=== PATIENT | female | born 1970 | race Caucasian/White ===

== ENCOUNTER → 2017-01-20 | Outpatient (CLI) | payer BC ==
[2015-06-23 18:05] VITALS: BP 148/72
[~2017-01-20] MED LIST: CEPH500C PO; CYAN10005 PO; DICY20TA3 PO; FLUO40CA9 PO; FOLI1TAB16 PO; METH2.5T PO; ONDA4TAB12 PO; PHEN100C PO
--- NOTE | 2017-01-20 15:49 | RAD ---
Bone Densitometry History: Menopausal screening, white female, recent right ankle fracture, calcium use, rheumatoid arthritis and anticonvulsant use. Findings: Bone Densitometry was performed with dual photon absorption of the lumbar spine and proximal right femur. Lumbar Spine: Bone density is 0.940 g/cm2 for L1-L4. T-score is -2.0. Right Femur: Bone density is 0.783 g/cm2. T-score is -1.8. Impression: Osteopenia of the lumbar spine and proximal femurs. World Health Organization definition of osteoporosis and osteopenia for women: normal equals T score at or above -1.0 standard deviations; osteopenia equals T score between -1.0 and -2.5 standard deviations; osteoporosis equals T score at or below -2.5 standard deviations.
== END | disposition home or self-care (01) ==
LOC: DXRAD 15:16
PROVIDERS: ATTEND Physician Assistant
DX: M85.88 Other specified disorders of bone density and structure, other site (principal); S82.891D Other fracture of right lower leg, subsequent encounter for closed fracture with routine healing; M06.871 Other specified rheumatoid arthritis, right ankle and foot; X58.XXXD Exposure to other specified factors, subsequent encounter; Z78.0 Asymptomatic menopausal state
CPT/HCPCS: 77080

== ENCOUNTER → 2017-03-01 | Outpatient (CLI) | payer BC ==
[2015-06-23 18:05] VITALS: BP 148/72
--- NOTE | 2017-03-01 15:46 | RAD ---
DATE: 03/01/2017 EXAM: MAMMO ANA SCREENING BILATERAL HISTORY: Screening. Note is made of the positive family history for breast malignancy COMPARISON: 02/04/2016 This study was interpreted with the benefit of Computerized Aided Detection (CAD). FINDINGS: Breast Density: SCATTERED The breast parenchyma shows scattered fibroglandular densities. Breast parenchyma level B. The right breast is unchanged. The width there is a well-defined small, approximately 5 mm, density in the upper and outer aspect of the left breast. This may be present previously and probably reflects an intramammary lymph node. Targeted ultrasound advised. IMPRESSION: Small well-defined mass upper outer left breast. Targeted ultrasound is advised. BI-RADS CATEGORY: 0 INCOMPLETE: NEED ADDITIONAL IMAGING EVAULATION AND/OR PRIOR MAMMOGRAMS FOR COMPARISON RECOMMENDED FOLLOW-UP: ADD ADDITIONAL IMAGING PQRS compliance statement: Patient information was entered into a reminder system with a target due date soon for the next mammogram. Mammography is a sensitive method for finding small breast cancers, but it does not detect them all and is not a substitute for careful clinical examination. A negative mammogram does not negate a clinically suspicious finding and should not result in delay in biopsying a clinically suspicious abnormality. "Our facility is accredited by the [employer] Mammography Program."
== END | disposition home or self-care (01) ==
LOC: MAMMO 14:07
PROVIDERS: ATTEND Obstetrics & Gynecology
DX: Z12.31 Encounter for screening mammogram for malignant neoplasm of breast (principal); N63 Unspecified lump in breast; Z80.3 Family history of malignant neoplasm of breast
CPT/HCPCS: 77063; G0202; 77067

== ENCOUNTER → 2017-03-03 | Outpatient (CLI) | payer BC ==
[2015-06-23 18:05] VITALS: BP 148/72
--- NOTE | 2017-03-03 10:39 | RAD ---
Left breast ultrasound, 03/03/2017: History: Left breast nodule The recent diagnostic mammograms demonstrated a small smooth nodule at the 2-3:00 location in the left breast. A targeted ultrasound exam of that area demonstrates a 5 x 4 x 3 mm lymph node type density. Its margins are smooth. It demonstrates a normal echogenic hilum. No other abnormality is seen in this region. IMPRESSION: Small benign-appearing intramammary lymph node at the 2-3:00 location in the left breast, corresponding in size and location to the mammographic abnormality. BI-RADS 2-benign findings
== END | disposition home or self-care (01) ==
LOC: US 09:52
PROVIDERS: ATTEND Physician Assistant
DX: N63 Unspecified lump in breast (principal); R92.8 Other abnormal and inconclusive findings on diagnostic imaging of breast
CPT/HCPCS: 76641

== ENCOUNTER 2019-06-27 16:23 | Emergency (ER) | payer BC ==
[~2019-06-27] VITALS: Ht 170.2 cm; Wt 96.1 kg
[~2019-06-27 16:23] MED LIST changes: +CYAN-25 PO; -CYAN10005 PO
--- NOTE | 2019-06-27 16:55 | PHYS DOC ---
Past History Past Medical History: Arthritis, Depression, Seizure Past Surgical History: Appendectomy, Cervical Fusion, Cholecystectomy, Oophorectomy, Tonsillectomy, Other Additional Past Surgical Histo: right ankle with metal placed for tib/fib fx Smoking: Non-smoker Alcohol Use: Occasionally Additional Alcohol Information: 2-3 wine daily Drug Use: None Adult General Chief Complaint Chief Complaint: CHEST PAIN HPI HPI Patient is a 49-year-old female presents complaining of right-sided chest discomfort for the past 2 days. This started after she had been doing some heavy lifting 3 days ago helping move furniture. Acutely onset after sneezing and coughing 2 days ago. No home pain medicines been taken. Increased pain with deep breaths. She did travel to [place] by a air at the beginning of May. There has been no new leg swelling. No nausea or vomiting. No diaphoresis. No radiation of the pain. It is sharp and has been constant for the past 2 days. No specific worsening with exertion.[] Review of Systems Review of Systems Constitutional: Denies fever or chills [] Eyes: Denies change in visual acuity, redness, or eye pain [] HENT: Denies nasal congestion or sore throat [] Respiratory: Denies cough or shortness of breath [] Cardiovascular: No additional information not addressed in HPI [] GI: Denies abdominal pain, nausea, vomiting, bloody stools or diarrhea [] : Denies dysuria or hematuria [] Musculoskeletal: Denies back pain or joint pain [] Integument: Denies rash or skin lesions [] Neurologic: Denies headache, focal weakness or sensory changes [] Endocrine: Denies polyuria or polydipsia [] All other systems were reviewed and found to be within normal limits, except as documented in this note. Allergies Allergies Allergies Coded Allergies Type Severity Reaction Last Updated Verified phenobarbital Adverse Reaction Intermediate anxiety 06/27/19 No Physical Exam Physical Exam Constitutional: Well developed, well nourished, no acute distress, non-toxic appearance. [] HENT: Normocephalic, atraumatic, bilateral external ears normal, oropharynx moist, no oral exudates, nose normal. [] Eyes: PERRLA, EOMI, conjunctiva normal, no discharge. [] Neck: Normal range of motion, no tenderness, supple, no stridor. No JVD, trachea is midline[] Cardiovascular:Heart rate regular rhythm, no murmur [] Lungs & Thorax: Bilateral breath sounds clear to auscultation. There is tenderness to palpation in the mid clavicular line, over the fifth rib. There is no bruising. No crepitus. This re-creates the discomfort. [] Abdomen: Bowel sounds normal, soft, no tenderness, no masses, no pulsatile masses. [] Skin: Warm, dry, no erythema, no rash. [] Back: No tenderness, no CVA tenderness. [] Extremities: No tenderness, no cyanosis, no clubbing, ROM intact, no edema. [] Neurologic: Alert and oriented X 3, normal motor function, normal sensory function, no focal deficits noted. [] Psychologic: Affect normal, judgement normal, mood normal. [] Current Patient Data Vital Signs Vital Signs Date Time Temp Pulse Resp B/P (MAP) Pulse Ox O2 Delivery O2 Flow Rate FiO2 06/27/19 16:33 98.6 76 20 96 Room Air EKG EKG EKG shows a sinus rhythm at 70 bpm, normal axis, QTC 435 ms, no ST elevation. Interpreted by me at 1701[] Radiology/Procedures Radiology/Procedures Chest x-ray shows no infiltrate, no effusion, no pneumothorax[] Course & Med Decision Making Course & Med Decision Making Pertinent Labs and Imaging studies reviewed. (See chart for details) ED course: Patient arrived, was placed in bed, and tolerated exam well. IV access was established, she was given IV ketorolac which significantly improved her pain, and her blood pressure came down with pain improvement. She was transferred to and from radiology with any consultations. After the return of laboratory and imaging findings, these were discussed with the patient voiced understanding. All questions were answered. She was discharged in improved condition. Medical decision making: There is no evidence of a pneumonia, pneumothorax, pulmonary embolism, esophageal rupture, dissecting thoracic aneurysm, nor acute coronary syndrome. Believe this to be rib/costochondritis type of issue following the cough.[] Dragon Disclaimer Dragon Disclaimer This electronic medical record was generated, in whole or in part, using a voice recognition dictation system. Departure Departure: Impression: Primary Impression: Chest pain Disposition: HOME, SELF-CARE Condition: IMPROVED Referrals: WENDY ISAACS (PCP) Follow-up in 2 days Patient Instructions: Chest Pain (Nonspecific), Chest Wall Pain Additional Instructions: Follow-up with your regular doctor in 2 days. Take the medication as prescribed. Return to the ER if worsening discomfort, difficulty breathing, or any other concerns. Scripts Acetaminophen With Codeine (TYLENOL WITH CODEINE #3 TABLET) 1 Each Tablet 1 TAB PO Q4-6HRS for severe pain, #30 TAB Prov: CLIFTON SELLERS DO 06/27/19 D-Methorphan Hb/Prometh Hcl (PROMETHAZINE-DM SYRUP) 118 Ml Syrup 5 ML PO PRN Q4HRS for CONGESTION, #120 ML Prov: CLIFTON SELLERS DO 06/27/19 Meloxicam (MELOXICAM) 7.5 Mg Tablet 7.5 MG PO DAILY for PAIN, #20 TAB Prov: CLIFTON SELLERS DO 06/27/19 Problem Qualifiers Primary Impression: Chest pain Chest pain type: intercostal pain Qualified Codes: R07.82 - Intercostal pain CLIFTON SELLERS DO Jun 27, 2019 16:55
[2019-06-27] MEDS ORDERED: KETOROLAC 15 MG/ML VIAL. IV ONE (17:00)
--- NOTE | 2019-06-27 17:06 | EKG ---
[address] [address] Test Date: 2019-06-27 Test Time: 16:58:25 Pat Name: THANG STEPHEN Department: Room: Gender: F Staff Sonographer: [place] : 1970 Requested By: CLIFTON SELLERS Order Number: [id number] Reading MD: Measurements Intervals [place] Rate: 70 P: 41 CT: 166 QRS: 0 QRSD: 88 T: 17 QT: 400 QTc: 435 Interpretive Statements SINUS RHYTHM LEFTWARD AXIS QRS(T) CONTOUR ABNORMALITY CONSIDER ANTEROSEPTAL MYOCARDIAL DAMAGE POSSIBLY ABNORMAL ECG RI6.01 No previous ECG available for comparison
[2019-06-27 17:30] LABS: BASO % 0 % (0-3); EOS # 0.2 x10^3/uL (0.0-0.7); EOS % 3 % (0-3); HEMATOCRIT 43.1 % (36.0-47.0); HEMOGLOBIN 14.6 g/dL (12.0-15.5); LYMPH # 1.8 x10^3/uL (1.0-4.8); LYMPH % 24 % (24-48); MEAN CORPUSCULAR HEMOGLOBIN 30 pg (25-35); MEAN CORPUSCULAR HGB CONC 34 g/dL (31-37); MEAN CORPUSCULAR VOLUME 88 fL (79-100); MONO # 0.8 x10^3/uL (0.0-1.1); MONO % 10 % (0-9); NEUT # 4.7 x10^3uL (1.8-7.7); NEUT % 63 % (31-73); PLATELET COUNT 224 x10^3/uL (140-400); RED BLOOD COUNT 4.88 x10^6/uL (3.50-5.40); RED CELL DISTRIBUTION WIDTH 12.7 % (11.5-14.5); WHITE BLOOD COUNT 7.5 x10^3/uL (4.0-11.0)
[2019-06-27 17:43] LABS: PREG TEST PT QUAL NEGATIVE (NEG)
[2019-06-27 17:44] LABS: ALBUMIN 3.8 g/dL (3.4-5.0); ALBUMIN/GLOBULIN RATIO 1.1 (1.0-1.7); CALCIUM 9.3 mg/dL (8.5-10.1); CREATININE 0.7 mg/dL (0.6-1.0); GFR 88.2; MAGNESIUM 1.9 mg/dL (1.8-2.4); POTASSIUM 3.7 mmol/L (3.5-5.1); TOTAL BILIRUBIN 0.4 mg/dL (0.2-1.0); TOTAL PROTEIN 7.2 g/dL (6.4-8.2)
[2019-06-27 18:00] VITALS: BP 123/75
[2019-06-27] MEDS ORDERED: MELO7.5T29 PO (18:00)
[2019-06-27] MEDS ORDERED: PROM118S9 PO (18:00)
[2019-06-27] MEDS ORDERED: ACET-704 PO (18:00)
--- NOTE | 2019-06-27 18:22 | RAD ---
CHEST PA LATERAL Technique: PA and lateral views of the chest were obtained. Clinical History: Right-sided chest pain and cough Comparison: None. Findings: The heart and pulmonary vasculature appear within normal limits. There is linear opacities in the lung bases. The pleural margins are clear. Impression: Basilar infiltrates right worse than left likely pneumonia. Electronically signed by: Arron Bustamante III, MD (06/27/2019 6:19 PM) [facility]
== END 2019-06-27 18:19 | disposition home or self-care (01) ==
LOC: ER 16:23
DX: R07.82 Intercostal pain (principal); M19.90 Unspecified osteoarthritis, unspecified site; Z88.8 Allergy status to other drugs, medicaments and biological substances
CPT/HCPCS: 36415; 71046; 80053; 83690; 83735; 83880; 84484; 84703; 85025; 85379; 85610; 85730; 93005; 96374; 99285; J1885

== ENCOUNTER → 2020-05-13 | Outpatient (CLI) | payer BC ==
[~2020-05-13] MED LIST changes: +ACET-704 PO; +MELO7.5T29 PO; +PROM118S10 PO
--- NOTE | 2020-05-13 16:53 | RAD ---
EXAM: Right ankle, 3 views. HISTORY: Pain. COMPARISON: None. FINDINGS: 3 views of the right ankle are obtained. There is internal fixation of suspected healed medial and lateral malleolar fractures. The ankle mortise is intact. No osteochondral lesion is seen. There is soft tissue swelling. There is a small plantar spur. There is a corticated ossicle anterior to the talus. IMPRESSION: 1. Internal fixation of a suspected healed bimalleolar fractures. 2. Small plantar spur. 3. Soft tissue swelling. Electronically signed by: Bethany Webber MD (05/13/2020 4:50 PM) [id number]
== END | disposition home or self-care (01) ==
LOC: RAD 14:13
PROVIDERS: ATTEND Orthopaedic Surgery
DX: M77.31 Calcaneal spur, right foot (principal); M79.89 Other specified soft tissue disorders
CPT/HCPCS: 73610

== ENCOUNTER → 2020-08-20 | Outpatient (CLI) | payer BC ==
--- NOTE | 2020-08-20 11:38 | RAD ---
INDICATION: Osteoporosis screening. Follow-up of osteopenia COMPARISON: 01/20/2017 TECHNIQUE: Bone densitometry was performed through the lumbar spine and proximal femur. FINDINGS: Lumbar Spine: BMD: 0.88 T-Score: -2.5 Decreased by 7 percent from prior Proximal Femur: BMD: 0.74 T-Score: -1.7 Increased by less than 1 percent from prior IMPRESSION: 1. Lumbar spine falls within the osteoporotic range. 2. Proximal femur falls within the osteopenic range. Electronically signed by: Agustín Dunn MD (08/20/2020 11:36 AM) [id number]
--- NOTE | 2020-08-21 10:52 | RAD ---
DATE: 08/20/2020 10:25 AM EXAM: MAMMO ANA SCREENING BILATERAL HISTORY: Screening COMPARISON: 03/01/2017 Bilateral CC and MLO views of the breasts were performed. Bilateral breast tomosynthesis was performed in CC and MLO projections. This study was interpreted with the benefit of Computerized Aided Detection (CAD). FINDINGS: Breast Density: SCATTERED The breast parenchyma shows scattered fibroglandular densities. Breast parenchyma level B No suspicious masses, microcalcifications or architectural distortion is present to suggest malignancy in either breast. The visualized axillae are unremarkable. IMPRESSION: No mammographic evidence of malignancy. BI-RADS CATEGORY: 1 NEGATIVE RECOMMENDED FOLLOW-UP: 12M 12 MONTH FOLLOW-UP Annual screening mammography is recommended, unless clinically indicated sooner based on symptoms or change in physical exam. PQRS compliance statement: Patient information was entered into a reminder system with a target due date for the next mammogram. Mammography is a sensitive method for finding small breast cancers, but it does not detect them all and is not a substitute for careful clinical examination. A negative mammogram does not negate a clinically suspicious finding and should not result in delay in biopsying a clinically suspicious abnormality. "Our facility is accredited by the [employer] Mammography Program."
== END ==
LOC: MAMMO 10:05
PROVIDERS: ATTEND Obstetrics & Gynecology
DX: Z12.31 Encounter for screening mammogram for malignant neoplasm of breast (principal); M85.88 Other specified disorders of bone density and structure, other site; M81.8 Other osteoporosis without current pathological fracture
CPT/HCPCS: 77063; 77067; 77080

== ENCOUNTER 2021-11-23 17:16 | Emergency (ER) | payer BC ==
[~2021-11-23] VITALS: Ht 167.6 cm; Wt 101.7 kg
[~2021-11-23 17:16] MED LIST changes: +DICY20TA PO; -DICY20TA3 PO
[2021-11-23] MEDS ORDERED: FLUORESCEIN 1MG EYE STRIP. OS ONE (18:15)
[2021-11-23] MEDS ORDERED: TETRACAINE 0.5% OPHTH SOLUTION 4ML BOTTLE. OS ONE (18:15)
--- NOTE | 2021-11-23 18:59 | RAD ---
Two-view right forearm. Three-view right wrist HISTORY: Fell on outstretched hand 3 days ago Two-view right forearm: AP lateral views The visualized osseous structures appear normal. Three-view wrist: AP lateral oblique views The visualized osseous structures appear normal. IMPRESSION: No acute findings. Electronically signed by: Arron Bustamante III, MD (11/23/2021 6:57 PM) [facility]
--- NOTE | 2021-11-23 18:59 | RAD ---
Two-view right forearm. Three-view right wrist HISTORY: Fell on outstretched hand 3 days ago Two-view right forearm: AP lateral views The visualized osseous structures appear normal. Three-view wrist: AP lateral oblique views The visualized osseous structures appear normal. IMPRESSION: No acute findings. Electronically signed by: Arron Bustamante III, MD (11/23/2021 6:57 PM) [facility]
--- NOTE | 2021-11-23 19:07 | PHYS DOC ---
Past History Past Medical History: Arthritis, Depression, Seizure Additional Past Medical Histor: osteoporosis (ENDY DEMPSEY) Past Surgical History: Appendectomy, Cervical Fusion, Cholecystectomy, Oophorectomy, Tonsillectomy, Other Additional Past Surgical Histo: right ankle with metal placed for tib/fib fx (ENDY DEMPSEY) Smoking: Non-smoker Alcohol Use: Occasionally Additional Alcohol Information: had 2 beers today Drug Use: None (ENDY DEMPSEY) General Adult EDM: Chief Complaint: MULTIPLE COMPLAINTS HPI: HPI: Patient is a 51 year old female who presents with multiple complaints. Earlier this afternoon, patient states she was outside when "something flew into" her eye. Immediately after, her eye watered profusely. It is now swollen and she notes a "blister" on the lateral eye. Additionally, patient states [place] the [place] the [place] knocked her over and she fell onto her outstretched right hand. She reports soreness and some developing ecchymosis. Patient has no other complaints at this time. (ENDY DEMPSEY) Review of Systems: Review of Systems: ROS negative or noncontributory except as mentioned in HPI. (ENDY DEMPSEY) Current Medications: Current Meds: Current Medications Medications (Trade) Dose Ordered Sig/Kleber Start Time Stop Time Status Last Admin Dose Admin Fluorescein Sodium (Ful-Giselle 1mg) 1 strip 1X ONCE 11/23/21 18:15 11/23/21 18:16 DC 11/23/21 18:15 1 STRIP Tetracaine HCl (Tetracaine) 1 drop 1X ONCE 11/23/21 18:15 11/23/21 18:16 DC 11/23/21 18:15 1 DROP (ENDY DEMPSEY) Allergies: Allergies: Allergies Coded Allergies Type Severity Reaction Last Updated Verified phenobarbital Adverse Reaction Intermediate anxiety 11/23/21 No (ENDY DEMPSEY) Physical Exam: PE: Constitutional: Well developed, well nourished, no acute distress, non-toxic appearance. HENT: Normocephalic, atraumatic, bilateral external ears normal, nose normal. Eyes: PERRLA, EOMI, lateral chemosis noted on the left eye, watery discharge from left eye, conjunctival injection appreciated left side. Gaines lamp exam reveals fluorescein uptake on both the medial and lateral sclera of the left eye with some linear abrasions noted extending laterally from the iris, no globe rupture. Neck: Normal range of motion, no stridor. Skin: Warm, dry, no erythema, no rash. Extremities: No anatomical snuffbox tenderness noted on the right side, wrist diffusely tender to palpation, some small areas of either developing/healed ecchymosis appreciated on the right forearm, active and passive range of motion intact. Extremities otherwise no tenderness, no cyanosis, no clubbing, ROM inta ct, no edema. Neurologic: Alert and oriented x4, no focal deficits noted. (ENDY DEMPSEY) Current Patient Data: Vital Signs: Vital Signs Date Time Temp Pulse Resp B/P (MAP) Pulse Ox O2 Delivery O2 Flow Rate FiO2 11/23/21 19:17 65 18 160/88 (112) 95 Room Air 11/23/21 17:25 98.3 78 18 138/98 (111) 97 Room Air (ENDY DEMPSEY) Radiology/Procedures: Radiology/Procedures: PROCEDURE: WRIST 3V RIGHT Two-view right forearm. Three-view right wrist HISTORY: Fell on outstretched hand 3 days ago Two-view right forearm: AP lateral views The visualized osseous structures appear normal. Three-view wrist: AP lateral oblique views The visualized osseous structures appear normal. IMPRESSION: No acute findings. Electronically signed by: Arron Bustamante III, MD (11/23/2021 6:57 PM) [facility] (ENDY DEMPSEY) Heart Score: C/O Chest Pain: No (ENDY DEMPSEY) Course & Med Decision Making: Course & Med Decision Making Pertinent Labs and Imaging studies reviewed. (See chart for details) [] (ENDY DEMPSEY) Dragon Disclaimer: Dragon Disclaimer: This electronic medical record was generated, in whole or in part, using a voice recognition dictation system. (ENDY DEMPSEY) Attending Co-Sign The patient was seen and interviewed as well as examined at the bedside. The chart was reviewed. The case was discussed. Agree with the plan of care. (DAYANARA MARKS DO) Departure Departure: Impression: Primary Impression: Chemosis of left conjunctiva Additional Impressions: Allergic conjunctivitis of left eye Abrasion of sclera of left eye Qualified Codes: S05.8X2A - Other injuries of left eye and orbit, initial encounter Contusion of right forearm, initial encounter Disposition: HOME / SELF CARE / HOMELESS Condition: STABLE Referrals: WENDY ISAACS (PCP) Patient Instructions: Allergic Conjunctivitis, [id number], Eye - Corneal Abrasion, [id number], RICE - Routine Care for Injuries, [id number] Additional Instructions: EMERGENCY DEPARTMENT GENERAL DISCHARGE INSTRUCTIONS Thank you for coming to [facility] (ED) today and trusting us with you care. We trust that you had a positive experience in our Emergency Department. If you wish to speak to the department management, you may call the director at [phone]. YOUR FOLLOW UP INSTRUCTIONS ARE FOLLOWS: 1. Follow up with your primary care doctor. If you do not have a primary doctor, please ask for a resource list of physicians or clinics that may be able to assist you with follow up care. 2. The emergency provider has interpreted your imaging studies, if any were ordered. The radiology transitional living specialist also reviewed them. If there is a change in the findings, you will be notified in 48 hours when at all possible. 3. If a lab test or culture has been done, your results will be reviewed and you will be notified if you need a change in treatment. 4. Follow instructions verbalized to you and refer to the printouts if needed. ADDITIONAL INSTRUCTIONS AND INFORMATION: 1. Your care today has been supervised by a physician who is specially trained in emergency care. Many problems require more than one evaluation for a complete diagnosis and treatment. We recommend that you schedule your follow up appointment as recommended to ensure complete treatment of you illness or injury. If you are unable to obtain follow up care and continue to have a problem, or if your condition worsens, we recommend that you return to the ED. 2. We are not able to safely determine your condition over the phone nor are we able to give sound medical advice over the phone. For these safety reasons, if you call for medical advice we will ask you to come to the ED for further evaluation. 3. If you have any questions regarding these discharge instructions please call the ED at [phone]. SAFETY INFORMATION: In the interest of safety, wellness, and injury prevention; we encourage you to wear your seat belt, if you smoke; quite smoking, and we encourage family to use a protective helmet for bicycling and other sporting events that present an increased risk for head injury. IF YOUR SYMPTOMS WORSEN OR NEW SYMPTOMS DEVELOP, OR YOU HAVE CONCERNS ABOUT YOUR CONDITION; OR IF YOUR CONDITION WORSENS WHILE YOU ARE WAITING FOR YOUR FOLLOW UP APPOINTMENT; EITHER CONTACT YOUR PRIMARY CARE DOCTOR, THE PHYSICIAN WHOSE NAME AND NUMBER YOU WERE GIVEN, OR RETURN TO THE ED IMMEDIATELY. ENDY DEMPSEY Nov 23, 2021 19:06 DAYANARA MARKS DO Nov 24, 2021 05:48
[2021-11-23] MEDS ORDERED: ERYTHROMYCIN 0.5% OPHTH OINTMENT 1GM TUBE. OS ONE (19:15)
[2021-11-23] MEDS ORDERED: KETOTIFEN FUMARATE 0.025% OPHT SOLUTION BOTTLE. OS ONE (19:15)
[2021-11-23 19:17] VITALS: BP 160/88
== END 2021-11-23 19:26 | disposition home or self-care (01) ==
LOC: ER 17:16
DX: S50.11XA Contusion of right forearm, initial encounter (principal); S05.8X2A Other injuries of left eye and orbit, initial encounter; H11.422 Conjunctival edema, left eye; H10.12 Acute atopic conjunctivitis, left eye; M19.90 Unspecified osteoarthritis, unspecified site; Z88.8 Allergy status to other drugs, medicaments and biological substances; W18.39XA Other fall on same level, initial encounter; Y93.89 Activity, other specified; Y92.89 Other specified places as the place of occurrence of the external cause; Y99.8 Other external cause status
CPT/HCPCS: 73090; 73110; 99284